=== PATIENT | female | born 1930 | race Caucasian/White ===

== ENCOUNTER → 2017-12-15 | Outpatient (REF) | payer MEDICARE ==
[2017-12-15 13:01] LABS: ALBUMIN 3.7 GM/DL (3.2-5.2); ALBUMIN/GLOBULIN RATIO 1.19 (1.00-1.93); ALKALINE PHOSPHATASE 70 U/L (45-117); ALT/SGPT 13 U/L (12-78); ANION GAP 6 MEQ/L (8-16); AST/SGOT 19 U/L (7-37); BILIRUBIN,TOTAL 0.5 MG/DL (0.2-1.0); BLOOD UREA NITROGEN 18 MG/DL (7-18); CALCIUM LEVEL 9.1 MG/DL (8.8-10.2); CARBON DIOXIDE LEVEL 26 MEQ/L (21-32); CHLORIDE LEVEL 109 MEQ/L (98-107); CHOLESTEROL LEVEL 147 MG/DL (<200); CHOLESTEROL RISK RATIO 2.826 (<5); CREATININE FOR GFR 1.07 MG/DL (0.55-1.30); GLOMERULAR FILTRATION RATE 51.5 (>32); GLUCOSE, FASTING 124 MG/DL (70-100); HDL CHOLESTEROL 52 MG/DL (>40); LDL CHOLESTEROL 69 MG/DL (<100); NON-HDL-C 95 MG/DL; SODIUM LEVEL 141 MEQ/L (136-145); TOTAL PROTEIN 6.8 GM/DL (6.4-8.2); TRIGLYCERIDES LEVEL 131 MG/DL (<150)
[2017-12-15 13:41] LABS: ESTIMATED AVERAGE GLUCOSE 137 MG/DL (60-110); HEMOGLOBIN A1c 6.4 %
[2017-12-15 13:44] LABS: MAU/CREAT RATIO 1228.6 MCG/MG (0.0-30.0)
== END ==
LOC: M SFHCPLAZ 07:46
DX: I10 Essential (primary) hypertension (principal); E78.00 Pure hypercholesterolemia, unspecified; E11.9 Type 2 diabetes mellitus without complications; E55.9 Vitamin D deficiency, unspecified; E04.9 Nontoxic goiter, unspecified; Z68.30 Body mass index [BMI] 30.0-30.9, adult; Z23 Encounter for immunization
CPT/HCPCS: 84443

== ENCOUNTER → 2018-06-10 | Outpatient (REF) | payer MEDICARE ==
[~2018-06-10] MED LIST: AMLO25TA PO; AMLO5CAP2 PO; BACT800T; BUTT PASTE; CALCCHW12; CLEO300C2 PO; COLA100C2; FISHCAP; LISINOPRIL-HCTZ; MULTIVIT; PERI0.126 MT; SERT25TA PO; SERT25TA2; SIMV20TA2 PO; SIMV40TA2; TYLE167L PO; TYLE325T5 PO; VICO5TAB; VITAMIN D 3; ZOCO20TA
[2018-06-10 12:06] LABS: HEMOGLOBIN A1c 6.5 %
[2018-06-10 12:09] LABS: ALBUMIN 3.8 GM/DL (3.2-5.2); BILIRUBIN,TOTAL 0.4 MG/DL (0.2-1.0); CALCIUM LEVEL 9.7 MG/DL (8.8-10.2); CHOLESTEROL RISK RATIO 3.058 (<5); CREATININE FOR GFR 1.33 MG/DL (0.55-1.30); GLOMERULAR FILTRATION RATE 40.1 (>32); MAGNESIUM LEVEL 2.1 MG/DL (1.8-2.4); POTASSIUM SERUM 5.2 MEQ/L (3.5-5.1); TOTAL PROTEIN 6.5 GM/DL (6.4-8.2)
[2018-06-10 12:27] LABS: MAU/CREAT RATIO 215.4 MCG/MG (0.0-30.0)
== END ==
LOC: M SFHCPLAZ 08:30
PROVIDERS: ATTEND Internal Medicine
DX: Z00.00 Encounter for general adult medical examination without abnormal findings (principal); I10 Essential (primary) hypertension; E78.00 Pure hypercholesterolemia, unspecified; E11.29 Type 2 diabetes mellitus with other diabetic kidney complication

== ENCOUNTER → 2018-07-02 | Outpatient (REF) | payer MEDICARE ==
[~2018-07-02] MED LIST changes: -SERT25TA PO; +SERT25TA85 PO
== END ==
LOC: M LAB REF 15:46
PROVIDERS: ATTEND Surgery
DX: C44.629 Squamous cell carcinoma of skin of left upper limb, including shoulder (principal)

== ENCOUNTER → 2018-12-15 | Outpatient (REF) | payer MEDICARE ==
[~2018-12-15] MED LIST changes: -AMLO5CAP2 PO; +AMLO5CAP44 PO; -SIMV20TA2 PO; +SIMV20TA22 PO
[2018-12-15 12:18] LABS: AMORPHOUS SEDIMENT SMALL (NEGATIVE); APPEARANCE, URINE CLOUDY (CLEAR); BACTERIA, URINE AUTO 2+ (NEGATIVE); BILIRUBIN, URINE AUTO NEGATIVE (NEGATIVE); BLOOD, URINE BLOOD 1+ (NEGATIVE); COLOR, URINE YELLOW (YELLOW); GLUCOSE, URINE (UA) AUTO NEGATIVE (NEGATIVE); KETONE, URINE AUTO NEGATIVE (NEGATIVE); LEUKOCYTE ESTERASE, URINE AUTO 3+ (NEGATIVE); MUCUS, URINE SMALL (NEGATIVE); NITRITE, URINE AUTO NEGATIVE (NEGATIVE); PROTEIN, URINE AUTO 1+ mg/dL (NEGATIVE); RBC, URINE AUTO 23 /HPF (0-3); SPECIFIC GRAVITY URINE AUTO 1.018 (1.002-1.035); SQUAMOUS EPITHELIAL CELL UR AU 0 /HPF (0-6); TRANSITIONAL EPITHELIAL AUTO 1 /HPF; UROBILINOGEN, URINE AUTO 0.2 mg/dL (0.0-2.0); WBC, URINE AUTO TNTC /HPF (0-3)
[2018-12-15 12:25] LABS: HEMATOCRIT 39.5 % (36.0-47.0); HEMOGLOBIN 12.5 g/dl (12.0-15.5); MEAN CORPUSCULAR HEMOGLOBIN 29.2 pg (27.0-33.0); MEAN CORPUSCULAR HGB CONC 31.6 g/dl (32.0-36.5); MEAN CORPUSCULAR VOLUME 92.3 fl (80.0-96.0); PLATELET COUNT, AUTOMATED 173 10^3/uL (150-450); RED BLOOD COUNT 4.28 10^6/uL (4.00-5.40); WHITE BLOOD COUNT 7.3 10^3/uL (4.0-10.0)
[2018-12-15 12:53] LABS: MAU/CREAT RATIO 239.4 MCG/MG (0.0-30.0)
[2018-12-15 13:19] LABS: ALBUMIN 3.6 GM/DL (3.2-5.2); BILIRUBIN,TOTAL 0.4 MG/DL (0.2-1.0); CALCIUM LEVEL 9.6 MG/DL (8.8-10.2); CHOLESTEROL RISK RATIO 2.452 (<5); CREATININE FOR GFR 1.2 MG/DL (0.55-1.30); MAGNESIUM LEVEL 1.9 MG/DL (1.8-2.4); POTASSIUM SERUM 5.1 MEQ/L (3.5-5.1); PTH INTACT 39.1 PG/ML (18.5-88.0); TOTAL 25(OH) VITAMIN D 43.1 NG/ML (30.0-100.0); TOTAL PROTEIN 6.6 GM/DL (6.4-8.2)
[2018-12-15 13:23] LABS: HEMOGLOBIN A1c 6.2 %
== END ==
LOC: M SFHCPLAZ 09:23
PROVIDERS: ATTEND Internal Medicine
DX: N18.3 Chronic kidney disease, stage 3 (moderate) (principal); I10 Essential (primary) hypertension; E11.29 Type 2 diabetes mellitus with other diabetic kidney complication; E78.00 Pure hypercholesterolemia, unspecified; R80.9 Proteinuria, unspecified